=== PATIENT | male | born 1990 | race Asian ===

== ENCOUNTER → 2021-10-24 | Outpatient (CLI) | payer OTHER | LOC: M RAD 16:11 | DX: M25.551 Pain in right hip (principal); M54.50 Low back pain, unspecified; M45.0 Ankylosing spondylitis of multiple sites in spine ==

== ENCOUNTER → 2021-11-17 | Outpatient (CLI) | payer OTHER | LOC: M PLARAD 09:34 | DX: M54.41 Lumbago with sciatica, right side (principal); G89.29 Other chronic pain ==

== ENCOUNTER → 2022-02-05 | Outpatient (CLI) | payer MEDICARE | LOC: M PAIN 08:30 | PROVIDERS: ATTEND Nurse Practitioner Family | DX: M51.16 Intervertebral disc disorders with radiculopathy, lumbar region (principal); G89.29 Other chronic pain; Z79.899 Other long term (current) drug therapy ==

== ENCOUNTER → 2022-05-09 | Outpatient (CLI) | payer MEDICARE | LOC: M PAIN 08:30 | PROVIDERS: ATTEND Anesthesiology | DX: M51.16 Intervertebral disc disorders with radiculopathy, lumbar region (principal); M25.551 Pain in right hip; M25.569 Pain in unspecified knee; R12 Heartburn; M45.0 Ankylosing spondylitis of multiple sites in spine; R13.10 Dysphagia, unspecified; M54.2 Cervicalgia; H26.9 Unspecified cataract; Z79.899 Other long term (current) drug therapy ==

== ENCOUNTER → 2022-06-25 | Outpatient (CLI) | payer OTHER | LOC: M RAD 14:48 | PROVIDERS: ATTEND Anesthesiology | DX: M25.551 Pain in right hip (principal); Z96.642 Presence of left artificial hip joint ==

== ENCOUNTER → 2022-07-16 | Outpatient (CLI) | payer MEDICARE | LOC: M PAIN 09:15 | PROVIDERS: ATTEND Anesthesiology | DX: M25.551 Pain in right hip (principal); M54.17 Radiculopathy, lumbosacral region; M16.11 Unilateral primary osteoarthritis, right hip; M45.0 Ankylosing spondylitis of multiple sites in spine; R13.14 Dysphagia, pharyngoesophageal phase; M54.2 Cervicalgia; Z86.15 Personal history of latent tuberculosis infection; Z79.899 Other long term (current) drug therapy ==

== ENCOUNTER → 2022-08-29 | Outpatient (CLI) | payer MEDICARE ==
[2022-08-29 14:01] LABS: CREATININE FOR GFR 0.92 MG/DL (0.70-1.30); GLOMERULAR FILTRATION RATE > 60.0 (>60)
== END ==
LOC: M LAB 12:27
PROVIDERS: ATTEND Ophthalmology
DX: H30.21 Posterior cyclitis, right eye (principal); Z79.899 Other long term (current) drug therapy

== ENCOUNTER → 2022-09-03 | Outpatient (CLI) | payer MEDICARE | LOC: M LABSMTC 11:33 | PROVIDERS: ATTEND Anesthesiology | DX: Z01.812 Encounter for preprocedural laboratory examination (principal) ==

== ENCOUNTER → 2022-09-07 | Outpatient (CLI) | payer MEDICARE | LOC: M LABSMTC 09-06 10:10 | PROVIDERS: ATTEND Anesthesiology | DX: Z01.812 Encounter for preprocedural laboratory examination (principal); Z20.822 Contact with and (suspected) exposure to COVID-19 ==

== ENCOUNTER → 2022-09-10 | Outpatient (CLI) | payer MEDICARE ==
[~2022-09-10] MED LIST: ISOVUE-M 300 61% 15ML VIAL As Ordered ONE; LIDOCAINE 1% SDV 30ML VIAL As Ordered ONE; ONDANSETRON 4MG ORAL DISINTEGRATING TAB As Ordered ONE; diazePAM 5MG TABLET As Ordered ONE; methylPREDNISolone SUSP 40MG/ML 1ML VIAL (DEPO MEDROL) As Ordered ONE
== END ==
LOC: M PAIN 07:50
PROVIDERS: ATTEND Anesthesiology
DX: M51.16 Intervertebral disc disorders with radiculopathy, lumbar region (principal); G89.29 Other chronic pain; Z79.899 Other long term (current) drug therapy
CPT/HCPCS: 62323; J1030; Q9967

== ENCOUNTER → 2022-09-13 | Outpatient (CLI) | payer OTHER ==
[~2022-09-13] MED LIST changes: +ISOVUE-370 76% 100ML VIAL As Ordered ONE; -ISOVUE-M 300 61% 15ML VIAL As Ordered ONE; -LIDOCAINE 1% SDV 30ML VIAL As Ordered ONE; -ONDANSETRON 4MG ORAL DISINTEGRATING TAB As Ordered ONE; -diazePAM 5MG TABLET As Ordered ONE; -methylPREDNISolone SUSP 40MG/ML 1ML VIAL (DEPO MEDROL) As Ordered ONE
== END ==
LOC: M RAD 07:39
PROVIDERS: ATTEND Ophthalmology
DX: H30.21 Posterior cyclitis, right eye (principal); H35.351 Cystoid macular degeneration, right eye

== ENCOUNTER → 2022-09-21 | Outpatient (CLI) | payer OTHER ==
[~2022-09-21] MED LIST changes: -ISOVUE-370 76% 100ML VIAL As Ordered ONE; +PROHANCE 279.3MG/ML 15ML VIAL As Ordered ONE
== END ==
LOC: M RAD 08:08
PROVIDERS: ATTEND Ophthalmology
DX: H30.21 Posterior cyclitis, right eye (principal); H35.351 Cystoid macular degeneration, right eye
CPT/HCPCS: 70553; A9576

== ENCOUNTER → 2022-10-10 | Outpatient (CLI) | payer MEDICARE | LOC: M PAIN 09:15 | PROVIDERS: ATTEND Anesthesiology | DX: G89.29 Other chronic pain (principal); M54.17 Radiculopathy, lumbosacral region; K21.9 Gastro-esophageal reflux disease without esophagitis; Z79.899 Other long term (current) drug therapy ==

== ENCOUNTER 2022-10-21 08:16 | Emergency (ER) | payer MEDICARE, OTHER ==
[~2022-10-21] VITALS: Ht 170.2 cm; Wt 72.3 kg
[2022-10-21] MEDS ORDERED: METH2.5T48 PO (08:39)
[2022-10-21] MEDS ORDERED: [UNRECOGNIZED DRUG - CODE] PO (08:39)
[2022-10-21] MEDS ORDERED: PRED20TA PO (08:41)
[2022-10-21 08:54] LABS: BASO % 0.1 % (0.0-1.0); EOS % 0.1 % (0.0-3.0); HEMATOCRIT 41.5 % (42.0-52.0); HEMOGLOBIN 12.6 g/dl (13.5-17.5); LYMPH # 1.1 10^3/uL (1.5-5.0); LYMPH % 13.9 % (24.0-44.0); MEAN CORPUSCULAR HEMOGLOBIN 25.4 pg (27.0-33.0); MEAN CORPUSCULAR HGB CONC 30.4 g/dl (32.0-36.5); MEAN CORPUSCULAR VOLUME 83.7 fl (80.0-96.0); MONO # 0.8 10^3/uL (0.0-0.8); MONO % 9.9 % (2.0-8.0); NEUTROPHILS # 5.7 10^3/uL (1.5-8.5); NEUTROPHILS % 75.6 % (36.0-66.0); PLATELET COUNT, AUTOMATED 326 10^3/uL (150-450); RED BLOOD COUNT 4.96 10^6/uL (4.30-6.10); WHITE BLOOD COUNT 7.5 10^3/uL (4.0-10.0)
[2022-10-21 09:25] LABS: CK-MB VALUE MASS < 1.0 NG/ML (<3.6); LIPASE 43 U/L (12-53)
[2022-10-21 09:27] LABS: ALBUMIN 3.4 G/DL (3.2-5.2); ALKALINE PHOSPHATASE 82 U/L (46-116); ALT/SGPT 28 U/L (7.0-40); AST/SGOT 16 U/L (<34); BILIRUBIN,DIRECT < 0.1 MG/DL (<0.4); BILIRUBIN,TOTAL 0.3 MG/DL (0.3-1.2); BLOOD UREA NITROGEN 10 MG/DL (9-23); CALCIUM LEVEL 8.9 MG/DL (8.5-10.1); CARBON DIOXIDE LEVEL 28 MMOL/L (20-31); CHLORIDE LEVEL 105 MMOL/L (98-107); CPK CREATINE PHOSPHOKINASE 77 U/L (46-171); CREATININE FOR GFR 0.78 MG/DL (0.70-1.30); GLOMERULAR FILTRATION RATE > 60.0 (>60); GLUCOSE, FASTING 116 MG/DL (60-100); MB/CK RELATIVE INDEX 1.29 (< OR =4); POTASSIUM SERUM 4.2 MMOL/L (3.5-5.1); SODIUM LEVEL 139 MMOL/L (136-145); TOTAL PROTEIN 7.8 G/DL (5.7-8.2)
[2022-10-21 09:30] LABS: FREE T4 0.93 NG/DL (0.89-1.76)
[2022-10-21 10:00] VITALS: BP 120/81
== END 2022-10-21 10:14 | disposition home or self-care (01) ==
LOC: M ED 08:16 → EDBD 08:16 → M ED 10:14
DX: F41.0 Panic disorder [episodic paroxysmal anxiety] (principal); K21.9 Gastro-esophageal reflux disease without esophagitis; R13.19 Other dysphagia; D86.9 Sarcoidosis, unspecified; Z86.11 Personal history of tuberculosis

== ENCOUNTER → 2022-11-08 | Outpatient (CLI) | payer OTHER ==
[~2022-11-08] MED LIST changes: +METH2.5T48 PO; +PRED20TA PO; -PROHANCE 279.3MG/ML 15ML VIAL As Ordered ONE; +[UNRECOGNIZED DRUG - CODE] PO
[2022-11-08 18:06] LABS: ALBUMIN 3.6 G/DL (3.2-5.2); ALT/SGPT 28 U/L (7.0-40); AST/SGOT 16 U/L (<34); CREATININE FOR GFR 0.83 MG/DL (0.70-1.30); GLOMERULAR FILTRATION RATE > 60.0 (>60)
[2022-11-08 18:11] LABS: BASO % 0.5 % (0.0-1.0); EOS # 0.1 10^3/uL (0.0-0.5); HEMATOCRIT 44.7 % (42.0-52.0); HEMOGLOBIN 13.3 g/dl (13.5-17.5); LYMPH # 1.4 10^3/uL (1.5-5.0); LYMPH % 17.8 % (24.0-44.0); MEAN CORPUSCULAR HEMOGLOBIN 25.7 pg (27.0-33.0); MEAN CORPUSCULAR HGB CONC 29.8 g/dl (32.0-36.5); MEAN CORPUSCULAR VOLUME 86.3 fl (80.0-96.0); MONO # 0.8 10^3/uL (0.0-0.8); MONO % 9.6 % (2.0-8.0); NEUTROPHILS # 5.5 10^3/uL (1.5-8.5); NEUTROPHILS % 70.6 % (36.0-66.0); PLATELET COUNT, AUTOMATED 319 10^3/uL (150-450); RED BLOOD COUNT 5.18 10^6/uL (4.30-6.10); WHITE BLOOD COUNT 7.8 10^3/uL (4.0-10.0)
[2022-11-08 18:43] LABS: ERYTHROCYTE SEDIMENTATION RATE 75 mm/hr (0-15)
== END ==
LOC: M LAB 16:41
DX: Z51.81 Encounter for therapeutic drug level monitoring (principal); Z79.899 Other long term (current) drug therapy; H20.10 Chronic iridocyclitis, unspecified eye; D86.9 Sarcoidosis, unspecified

== ENCOUNTER → 2022-12-27 | Outpatient (CLI) | payer OTHER | LOC: M SOG 07:57 | PROVIDERS: ATTEND Orthopaedic Surgery | DX: M54.50 Low back pain, unspecified (principal); M79.642 Pain in left hand; M25.551 Pain in right hip; M79.89 Other specified soft tissue disorders; Z96.642 Presence of left artificial hip joint; M17.12 Unilateral primary osteoarthritis, left knee; M85.88 Other specified disorders of bone density and structure, other site ==

== ENCOUNTER → 2023-04-29 | Outpatient (CLI) | payer OTHER ==
[~2023-04-29] MED LIST changes: +ISOVUE-370 76% 100ML VIAL As Ordered ONE
== END ==
LOC: M RAD 07:42
PROVIDERS: ATTEND Orthopaedic Surgery
DX: M25.872 Other specified joint disorders, left ankle and foot (principal); M79.89 Other specified soft tissue disorders; M85.472 Solitary bone cyst, left ankle and foot
CPT/HCPCS: 73701; Q9967

== ENCOUNTER → 2023-07-15 | Outpatient (CLI) | payer OTHER ==
[~2023-07-15] MED LIST changes: -ISOVUE-370 76% 100ML VIAL As Ordered ONE
[2023-07-15 14:01] LABS: BASO # 0.1 10^3/uL (0.0-0.2); BASO % 0.9 % (0.0-1.0); EOS # 0.3 10^3/uL (0.0-0.5); EOS % 5.3 % (0.0-3.0); HEMATOCRIT 44.4 % (42.0-52.0); HEMOGLOBIN 13.7 g/dl (13.5-17.5); LYMPH # 1.6 10^3/uL (1.5-5.0); LYMPH % 24.1 % (24.0-44.0); MEAN CORPUSCULAR HEMOGLOBIN 25.9 pg (27.0-33.0); MEAN CORPUSCULAR HGB CONC 30.9 g/dl (32.0-36.5); MEAN CORPUSCULAR VOLUME 83.9 fl (80.0-96.0); MONO # 0.8 10^3/uL (0.0-0.8); NEUTROPHILS # 3.6 10^3/uL (1.5-8.5); NEUTROPHILS % 56.4 % (36.0-66.0); PLATELET COUNT, AUTOMATED 293 10^3/uL (150-450); RED BLOOD COUNT 5.29 10^6/uL (4.30-6.10); WHITE BLOOD COUNT 6.5 10^3/uL (4.0-10.0)
[2023-07-15 14:28] LABS: ALBUMIN 3.7 G/DL (3.2-5.2); ALKALINE PHOSPHATASE 106 U/L (46-116); ALT/SGPT 68 U/L (7.0-40); AST/SGOT 30 U/L (<34); BILIRUBIN,TOTAL 0.2 MG/DL (0.3-1.2); BLOOD UREA NITROGEN 10 MG/DL (9-23); CALCIUM LEVEL 8.8 MG/DL (8.5-10.1); CARBON DIOXIDE LEVEL 26 MMOL/L (20-31); CHLORIDE LEVEL 103 MMOL/L (98-107); CREATININE FOR GFR 1.01 MG/DL (0.70-1.30); GLOMERULAR FILTRATION RATE > 60.0 (>60); GLUCOSE, FASTING 93 MG/DL (60-100); POTASSIUM SERUM 4.2 MMOL/L (3.5-5.1); SODIUM LEVEL 135 MMOL/L (136-145); TOTAL PROTEIN 7.7 G/DL (5.7-8.2)
== END ==
LOC: M LAB 12:42
PROVIDERS: ATTEND Internal Medicine Infectious Disease
DX: A43.9 Nocardiosis, unspecified (principal)

== ENCOUNTER → 2023-07-15 | Outpatient (CLI) | payer OTHER ==
[2023-07-15 14:01] LABS: BASO # 0.1 10^3/uL (0.0-0.2); BASO % 0.9 % (0.0-1.0); EOS # 0.3 10^3/uL (0.0-0.5); EOS % 5.1 % (0.0-3.0); HEMATOCRIT 43.6 % (42.0-52.0); HEMOGLOBIN 13.5 g/dl (13.5-17.5); LYMPH # 1.7 10^3/uL (1.5-5.0); MEAN CORPUSCULAR HEMOGLOBIN 26.2 pg (27.0-33.0); MEAN CORPUSCULAR VOLUME 84.5 fl (80.0-96.0); MONO # 0.9 10^3/uL (0.0-0.8); MONO % 13.7 % (2.0-8.0); NEUTROPHILS # 3.7 10^3/uL (1.5-8.5); NEUTROPHILS % 54.9 % (36.0-66.0); PLATELET COUNT, AUTOMATED 295 10^3/uL (150-450); RED BLOOD COUNT 5.16 10^6/uL (4.30-6.10); WHITE BLOOD COUNT 6.7 10^3/uL (4.0-10.0)
[2023-07-15 14:08] LABS: ERYTHROCYTE SEDIMENTATION RATE 66 mm/hr (0-15)
[2023-07-15 14:30] LABS: BLOOD UREA NITROGEN 9 MG/DL (9-23); CALCIUM LEVEL 8.7 MG/DL (8.5-10.1); CARBON DIOXIDE LEVEL 26 MMOL/L (20-31); CHLORIDE LEVEL 105 MMOL/L (98-107); CREATININE FOR GFR 1.05 MG/DL (0.70-1.30); GLOMERULAR FILTRATION RATE > 60.0 (>60); GLUCOSE, FASTING 90 MG/DL (60-100); POTASSIUM SERUM 4.3 MMOL/L (3.5-5.1); SODIUM LEVEL 137 MMOL/L (136-145)
== END ==
LOC: M LAB 12:38
PROVIDERS: ATTEND Orthopaedic Surgery
DX: M86.672 Other chronic osteomyelitis, left ankle and foot (principal)

== ENCOUNTER → 2023-07-16 | Outpatient (CLI) | payer OTHER ==
[~2023-07-16] MED LIST changes: +ISOVUE-370 76% 100ML VIAL As Ordered ONE
== END ==
LOC: M RAD 13:11
PROVIDERS: ATTEND Internal Medicine Pulmonary Disease
DX: D86.0 Sarcoidosis of lung (principal)
CPT/HCPCS: 71260; Q9967